=== PATIENT | male | born 1970 | race Caucasian/White ===

== ENCOUNTER 2016-06-21 06:47 | Day surgery (SDC) | payer OTHER ==
[~2016-06-21] VITALS: Ht 180.3 cm; Wt 94.7 kg
[2016-06-21] MEDS ORDERED: PRILOSEC 20MG20 MG PO (07:25)
[2016-06-21] MEDS ORDERED: ALLEGRA 180MG180 MG PO (07:26)
[2016-06-21] MEDS ORDERED: SYNTHROID0.05 MG/TA PO (07:27)
[2016-06-21 07:41] VITALS: BP 118/84; PULSE 76; TEMP 98.3
[2016-06-21 09:20] VITALS: BP 135/81; PULSE 72; TEMP 97.7
[2016-06-21 09:35] VITALS: BP 118/75; PULSE 75
[2016-06-21 09:45] VITALS: BP 110/81
== END 2016-06-21 10:00 | disposition home or self-care (01) ==
LOC: SDCO 06:47
DX: R19.4 Change in bowel habit (principal); K57.30 Diverticulosis of large intestine without perforation or abscess without bleeding; R10.84 Generalized abdominal pain; Z83.79 Family history of other diseases of the digestive system
CPT/HCPCS: J2250; J3010; J7030

== ENCOUNTER 2021-09-11 12:23 | Day surgery (SDC) | payer BC, OTHER ==
[~2021-09-11] VITALS: Ht 180.3 cm; Wt 99.4 kg
[~2021-09-11 12:23] MED LIST: ALLEGRA 180MG180 MG PO; PRILOSEC 20MG20 MG PO; SYNTHROID0.05 MG/TA PO
[2021-09-11] MEDS ORDERED: PROTONIX 40MG T40 MG PO (12:44)
[2021-09-11 12:52] VITALS: BP 138/92; PULSE 73; TEMP 98.5
[2021-09-11 14:05] VITALS: BP 124/76; PULSE 57; TEMP 97.8
[2021-09-11 14:20] VITALS: BP 121/73; PULSE 65
[2021-09-11 14:35] VITALS: BP 118/73; PULSE 68
--- NOTE | 2021-09-11 14:40 | NUR ---
1405: Patient arrived back [facility]. Patient is alert and oriented. Vital signs stable. Report received from REFUGIO Ding. Patient requesting Pepsi and chocolate pudding. Denies pain nausea. Call light left within reach. MD talked with patient and . 1420: Patient vitally stable. Tolerating food and drink well. Denies pain or nausea at this time. 1435: IV removed without complications. Went through discharge instructions with patient and . Patient got dressed. Escorted to patient entrance via wheelchair. Patient got into personal vehicle unassisted and left in the care of their family.
== END 2021-09-11 14:35 | disposition home or self-care (01) ==
LOC: SDCO 12:23
DX: K21.00 Gastro-esophageal reflux disease with esophagitis, without bleeding (principal); K22.2 Esophageal obstruction; E66.9 Obesity, unspecified; Z68.34 Body mass index [BMI] 34.0-34.9, adult
CPT/HCPCS: C1726; J2704; J7030